=== PATIENT | female | born 1950 | race Caucasian/White ===

== ENCOUNTER 2021-04-29 16:11 | Emergency (ER) | payer OTHER, BC ==
[~2021-04-29] VITALS: Ht 167.6 cm; Wt 68.0 kg
--- NOTE | ~2021-04-29 | EMS ---
[address] [address] EMS Patient Care Report Name: MIKE HILL Room #: DEP MARYAN Riley#: [id number] Admission: 04/29/21 Attend Phys: Discharge: 04/29/21 Date of : 54 Report #: [id number] THIS REPORT FOR: //name// Report Transmitted: 05/01/2021 13:27 EMS Care Summary [place], [place]/[facility] Incident [id number] @ 04/29/2021 15:34 Incident Location [id number] [place] [address] Patient MIKE HILL Female, 70 Years 1950 Patient Address [id number] [place] [address] Patient History Thyroid Disease,Anxiety Disorder (Panic Attacks),Depression,Anxiety, Patient Allergies No known allergies, Patient Medications Other, Synthroid, Clonazepam, Chief Complaint Hot flash with abnormal sensation in her arms Disposition Transported No Lights/[place] [facility] Reason Sick Person Transported To [facility] Narrative Called for a sick. Upon arrival, pt was sitting out in the hallway of her apt. She stated, she was sitting down, watching TV, finished eating, all of the [address] [address] EMS Patient Care Report Name: MIKE HILL Room #: DEP ER Dede.#: [id number] Admission: 04/29/21 Attend Phys: Discharge: 04/29/21 Date of : 54 Report #: [id number] sudden had a hot flash, pain in her stomach, felt dizzy, both hands got numb up to her elbows, she didn't know what to do so she just kept her head down. Went to the bathroom, put her head between her legs. It took awhile, but got better as she put her head down and rubbed her hands together, took heavy deep breaths to not faint. She wanted to know why this happened so she thought she should go get checked out. She walked to the ambulance, climbed in and sat down w/o incident. Vitals obtained. En route: no changes. RR to the ER, no one answered. We arrived: walked and was sent to triage. Pt care & report to ER staff. Initial Vitals @15:55P: 96,R: 18,BP: 128/73,Pain: 0/10,GCS: 15,SpO2: 96,Revised Trauma: 12, Assessments @15:44MENTAL:Event Oriented,Person Oriented,Place Oriented,Time Oriented,SKIN:HEENT:LUNG SOUNDS:ABDOMEN:PELVIS//GI:EXTREMITIES:Right Arm: Other,Left Arm: Other,Left Leg: No Abnormalities,Right Leg: No Abnormalities,PULSE:Radial: 2+ Normal,NEURO:No Abnormalities, Impression Generalized Weakness Procedures @15:44 ALS Assessment Response: UnchangedSucceeded @15:53 Stretcher Response: Unchanged Timeline 15:31,Call Received 15:31,Dispatch Notified 15:34,Dispatched 15:35,En Route 15:42,On Scene 15:44,At Patient 15:44,ALS Assessment,Response: UnchangedSucceeded, 15:53,Stretcher,Response: Unchanged 15:55,BP: 128/73 M,PULSE: 96,RR: 18 R,SPO2: 96 Ox,ETCO2: ,BG: ,PAIN: 0,GCS: 15, 16:05,Depart Scene 16:07,At Destination 16:23,Call Closed Disclaimer v1.1 Copyright 2021 [employer] This EMS Care Summary contains data elements from the applicable legal record (which may be displayed differently). It is designed to provide pertinent information for the following purposes: continuity of care, clinical quality, [address] [address] EMS Patient Care Report Name: MIKE HILL Room #: DEP Osvaldo#: [id number] Admission: 04/29/21 Attend Phys: Discharge: 04/29/21 Date of : 54 Report #: [id number] and state data reporting. The complete legal record is available to ED staff and administrators of the receiving hospital in [employer] Patient Tracker. All data is provided "as is."
[2021-04-29] MEDS ORDERED: TRANYLCYPROMINE10 MG PO (16:21)
[2021-04-29] MEDS ORDERED: CLONAZEPAM 0.50.5 M1 PO (16:21)
[2021-04-29] MEDS ORDERED: SYNTHROID100 MC1 PO (16:21)
[2021-04-29 16:52] LABS: ABSOLUTE NEUTROPHILS 2.8 thou/uL (1.4-8.2); BASOPHILS 0.7 % (0.0-2.0); EOSINOPHILS 3.7 % (0.0-3.0); HEMATOCRIT 41.8 % (37.0-47.0); HEMOGLOBIN 14.1 gm/dL (12.0-15.0); LYMPHOCYTES 11.1 % (24.0-44.0); MCH 30.9 pg (26.0-34.0); MCHC 33.8 g/dL (28.0-37.0); MCV 91.3 fL (80.0-100.0); MONOCYTES 9.8 % (1.0-8.0); PLATELET COUNT 160 thou/uL (150-400); POLYS 74.7 % (36.0-66.0); RBC 4.57 mil/uL (4.20-5.00); RDW 12.9 % (10.5-14.5); WBC 3.8 thou/uL (4.0-11.0)
[2021-04-29 17:07] LABS: CALCIUM 8.9 mg/dL (8.5-10.1); CREATININE 1.1 mg/dL (0.6-1.0); POTASSIUM 3.3 mmol/L (3.5-5.1)
[2021-04-29 17:12] LABS: ALBUMIN 3.3 g/dL (3.4-5.0); TOTAL BILIRUBIN 0.5 mg/dL (0.2-1.0); TOTAL PROTEIN 6.1 g/dL (6.4-8.2)
[2021-04-29 17:35] LABS: URINE BILIRUBIN NEGATIVE (Negative); URINE BLOOD NEGATIVE (Negative); URINE CLARITY CLEAR; URINE COLOR YELLOW; URINE GLUCOSE-RANDOM* NEGATIVE (Negative); URINE KETONES TRACE (Negative); URINE LEUKOCYTES-REFLEX NEGATIVE (Negative); URINE NITRITE-REFLEX NEGATIVE (Negative); URINE PROTEIN (DIPSTICK) NEGATIVE (Negative); URINE SPECIFIC GRAVITY >= 1.030 (1.005-1.035); URINE UROBILINOGEN 0.2 E.U./dl (0.2-1.0)
[2021-04-29 17:50] VITALS: BP 107/66
--- NOTE | 2021-05-01 07:38 | EKG ---
[address] [address] ELECTROCARDIOGRAM REPORT Name: MIKE HILL [id number] Admission: 04/29/21 Attend Phys: Discharge: 04/29/21 Date of : 54 Report #: [id number] [facility] ED Test Date: 2021-04-29 Test Time: 16:52:43 Pat Name: MIKE HILL Department: Room: Gender: F [employer]: UN : 1950 Requested By: Jose Gallegos Order Number: [id number] MD: Ken Hines Measurements Intervals [place] Rate: 75 P: 24 MI: 140 QRS: 65 QRSD: 75 T: 71 QT: 396 QTc: 443 Interpretive Statements Sinus rhythm Compared to ECG 11/09/1989 14:45:00 Sinus arrhythmia no longer present ST (T wave) deviation no longer present Electronically Signed On 05-01-2021 7:38:00 PRINCIPAL ARCHITECT by Ken Hines [email or web address] <ELECTRONICALLY SIGNED> By: Ken Hines MD, [facility] 05/01/21 0738 51 51 Ken Hines MD, FACC /EPI
== END 2021-04-29 17:58 | disposition home or self-care (01) ==
LOC: ER 16:11
PROVIDERS: Physician Assistant
DX: R55 Syncope and collapse (principal); F32.9 Major depressive disorder, single episode, unspecified; F41.9 Anxiety disorder, unspecified; E03.9 Hypothyroidism, unspecified; Z79.899 Other long term (current) drug therapy